=== PATIENT | female | born 1960 | race Caucasian/White ===

== ENCOUNTER → 2017-04-29 | Outpatient (CLI) | payer OTHER ==
[2017-04-29 10:53] LABS: HEMOGLOBIN 14.9 g/dL (12.2-16.2); LYMPH # 1.8 K/mm3 (0.7-4.5); LYMPH % 32.1 % (10-50.0)
[2017-04-29 11:53] LABS: BUN 18 mg/dL (7-18)
[2017-04-29 11:54] LABS: GFR (ESTIMATED) 58 ML/MIN (59-)
== END ==
LOC: LAB 10:33
PROVIDERS: Internal Medicine Adolescent Medicine
DX: E78.5 Hyperlipidemia, unspecified (principal); E03.9 Hypothyroidism, unspecified; E11.9 Type 2 diabetes mellitus without complications